=== PATIENT | female | born 1955 | race Native Hawaiian/Other Pacific Islander ===

== ENCOUNTER 2022-08-14 10:51 | Outpatient (CLI) | payer MEDICARE, OTHER, SELFPAY | END 2022-08-14 10:52 | disposition home or self-care (01) | PROVIDERS: PCP Family Medicine; Visit Provider Family Medicine | DX: M54.16 Radiculopathy, lumbar region (principal); M51.36 Other intervertebral disc degeneration, lumbar region | CPT/HCPCS: 64483; J1100; Q9966 ==

== ENCOUNTER 2023-11-19 07:00 | Outpatient (CLI) | payer MEDICARE, OTHER, SELFPAY | END 2023-11-19 07:01 | disposition home or self-care (01) | LOC: INJ CL 07:02 | PROVIDERS: PCP Family Medicine; Visit Provider Family Medicine | DX: M54.16 Radiculopathy, lumbar region (principal); M51.36 Other intervertebral disc degeneration, lumbar region | CPT/HCPCS: 64483; J1100; Q9966 ==

== ENCOUNTER 2023-12-10 14:14 | Outpatient (CLI) | payer MEDICARE, OTHER, SELFPAY | END 2023-12-10 14:15 | disposition home or self-care (01) | LOC: INJ CL 14:15 | PROVIDERS: PCP Family Medicine; Visit Provider Family Medicine | DX: M17.11 Unilateral primary osteoarthritis, right knee (principal); M25.561 Pain in right knee | CPT/HCPCS: 64454 ==

== ENCOUNTER 2023-12-24 13:14 | Outpatient (CLI) | payer MEDICARE, OTHER, SELFPAY | END 2023-12-24 13:15 | disposition home or self-care (01) | LOC: INJ CL 13:15 | PROVIDERS: PCP Family Medicine; Visit Provider Family Medicine | DX: M25.561 Pain in right knee (principal); G89.29 Other chronic pain | CPT/HCPCS: 64624 ==

== ENCOUNTER 2024-03-09 09:06 | Outpatient (CLI) | payer MEDICARE, OTHER, SELFPAY ==
--- NOTE | 2024-03-09 09:15 | CRLHL7_ITS ---
For Patients: As a result of the Century Cures Act, medical imaging exams and procedure reports are released immediately into your electronic medical record. You may view this report before your referring provider. If you have questions, please contact your health care provider. Indication: Low back pain. Technique: Multisequence multiplanar MRI of the lumbar spine without the use of intravenous contrast. Comparison: None available. Findings: Normal vertebral alignment and stature. No discrete marrow replacing lesion. The conus medullaris terminates normally at the L1 level. There is mild multilevel disc desiccation and height loss. A probable left parapelvic cyst measures up to 2.9 cm. T12-L1: No significant spinal canal or neural foraminal stenosis. L1-L2: Symmetric disc bulge. Mild facet joint arthrosis. No significant spinal canal or neural foraminal stenosis. L2-L3: Symmetric disc bulge. Mild facet joint arthrosis. Mild-moderate spinal canal stenosis and mild bilateral neural foraminal narrowing. L3-L4: Symmetric disc bulge. Mild facet joint arthrosis. Mild-moderate spinal canal stenosis and mild bilateral neural foraminal narrowing. L4-L5: Symmetric disc bulge. Mild facet joint arthrosis. Mild spinal canal stenosis with narrowing of the left lateral recess. Mild bilateral neural foraminal narrowing. L5-S1: Posterior disc bulge eccentric to the left. Mild facet joint arthrosis. No significant spinal canal stenosis. Mild left neural foraminal narrowing with questionable abutment of the exiting left L5 nerve root. No significant right neural foraminal narrowing. Impression: 1. Moderate lumbar spondylosis with multilevel disc height loss and facet joint hypertrophy. 2. At L2-L3 and L3-L4, mild-moderate spinal canal stenosis and mild bilateral neural foraminal narrowing. 3. At L4-L5, mild spinal canal stenosis with narrowing of the left lateral recess and mild bilateral neural foraminal narrowing. 4. At L5-S1, eccentric disc bulge questionably contacting the exiting left L5 nerve root. Dictated by Bakari Ellington MD @ 03/09/2024 2:52:31 PM (Electronically Signed)
== END 2024-03-09 09:07 | disposition home or self-care (01) ==
LOC: MRI 09:06
PROVIDERS: PCP Family Medicine
DX: M54.50 Low back pain, unspecified (principal); M47.896 Other spondylosis, lumbar region; M51.26 Other intervertebral disc displacement, lumbar region; M51.27 Other intervertebral disc displacement, lumbosacral region
CPT/HCPCS: 72148